=== PATIENT | male | born 2000 ===

== ENCOUNTER 2021-08-21 01:51 | Emergency (ER) | payer OTHER, SELFPAY ==
[2021-08-21 02:00] VITALS: BP 131/74; PULSE 76; RESP 18; TEMP 36.6; O2SAT 99
[2021-08-21 02:35] LABS: COVID19 -Nasal RAPID Negative (Negative)
--- NOTE | 2021-08-21 02:40 | ED_ITS ---
HPI - Recheck/Abnormal Lab/Rx General Chief Complaint: Recheck/Abnormal Lab/Rx Stated Complaint: COVID TEST Time Seen by Provider: 08/21/21 01:57 Source: patient Mode of arrival: Ambulatory History of Present Illness HPI narrative: Patient is a 20-year-old male. Has no food COVID-19 symptoms. [place] the border from [place] to [place] is informed that he needed a COVID- 19 test. He is here for COVID-19 testing. He is vaccinated against COVID-19. Review of Systems Constitutional Constitutional: Denies fever(s) ENT Ears, Nose, Mouth, and Throat: Reports system reviewed and no additional complaints, except as documented Cardiovascular Cardiovascular: Denies dyspnea Respiratory Respiratory: Denies cough and Denies dyspnea Gastrointestinal Gastrointestinal: Reports system reviewed and no additional complaints, except as documented Patient History Social History Smoking Status: Never smoker Smoking Status: Never smoker Substance Use Type: does not use Exam Initial Vital Signs Initial Vital Signs: Vital Signs Temperature 98 F 08/21/21 02:00 Pulse Rate 76 08/21/21 02:00 Respiratory Rate 18 08/21/21 02:00 Blood Pressure 131/74 08/21/21 02:00 Pulse Oximetry 99 08/21/21 02:00 Resp Effort & Inspection: normal respiratory effort Cardio Rate: regular rate Neuro General: patient alert, patient awake and moves all extremities Extrem General: normal to inspection Course Orders Ordered: ED Orders 08/21/21 02:00 COVID19 -Nasal swab/Pre-Proc Stat Vital Signs Vital signs: Vital Signs - 8 hr 08/21/21 02:00 Temperature 98 F Pulse Rate 76 Respiratory Rate 18 Blood Pressure 131/74 Pulse Oximetry 99 MDM - Recheck/Abnormal Lab/Rx Lab Data Labs: Lab Results 08/21/21 Range/Units 02:00 SARS-CoV-2 (PCR) Negative (Negative) MDM Narrative Medical decision making narrative: Patient's COVID-19 test was negative. He was given the results of the test. Discharge Plan Departure Patient Disposition: Home Clinical Impression: Encounter for laboratory testing for COVID-19 virus Activity Restrictions/Additional Instructions: Your COVID test performed on 08/21/21 was negative.
== END 2021-08-21 02:35 | disposition home or self-care (01) ==
PROVIDERS: Emergency Provider Emergency Medicine
DX: Z20.822 Contact with and (suspected) exposure to COVID-19 (principal)
CPT/HCPCS: 87635; 99281; 99282; C9803